=== PATIENT | female | born 1945 | race Hispanic/Latino ===

== ENCOUNTER 2022-08-30 08:37 | Outpatient (CLI) | payer MEDICARE ==
[2022-08-30] MEDS ORDERED: Magnevist 469MG/ML 20 ML VIAL ONE ×2 (09:19)
== END 2022-08-30 08:38 | disposition home or self-care (01) ==
LOC: CSHMRI 08:37
PROVIDERS: ATTEND Psychiatry & Neurology Neurology
DX: R41.3 Other amnesia (principal); M47.812 Spondylosis without myelopathy or radiculopathy, cervical region; R90.82 White matter disease, unspecified
CPT/HCPCS: 70553; 72156; 82565